=== PATIENT | female | born 1945 | race Caucasian/White ===

== ENCOUNTER 2019-06-11 11:50 | Outpatient (CLI) | payer MEDICARE, SELFPAY ==
--- NOTE | ~2019-06-11 | DEXA_ITS ---
BMD(1) Young-Adult(2) Age-Matched(3) Region (g/cm2) T-score Z-score WHO Classification L1 1.033 -0.9 0.5 Normal L2 1.108 -0.8 0.5 Normal L3 1.360 1.1 2.5 Normal L4 1.217 0.0 1.4 Normal L1-L4 1.179 -0.1 1.3 Normal Trend: L1-L4 Change vs Change vs Measured Age BMD(1) Baseline Previous Date [age]) (g/cm2) (%) (%) 06/11/2019 [age] 1.179 10.5* 10.5* 12[age]24/2015 [age] 1[age]067 baseline - * - Indicates significant change based on 95% confidence interval. 1 - Statistically 68% of repeat scans fall within 1SD (+- 0.010 g/cm2 for AP Spine L1-L4) 2 - [place] (Combined NHANES (ages 20-30) / enosiX (ages 20-40)) AP Spine Reference Population (v112) 3 - Matched for Age, Weight (females 25-100 kg), Ethnic 11 - World Health Organization - Definition of Osteoporosis and Osteopenia for Women: Norm al = T-score at or above -1.0 SD; Osteopenia = T-score between -1.0 and -2.5 SD; Osteoporosis = T-sco re at or below -2.5 SD; (WHO definitions only apply when a young healthy Women reference da tabase is used to determine T-scores.) Printed: 06/11/2019 12:36:26 PM (13.60)76:3.00:50.00:12.0 0.00:12.78 0.60x1.05 25.8:%Fat=44.2% 0.00:0.00 0.00:0.00 Filename: [id number] Scan Mode: Standard;OneScan 37.0 MyLuvs [id number] BMD(1) Young-Adult(2,7) Age-Matched(3) Region (g/cm2) T-score Z-score WHO Classification Neck Left 0.913 -0.9 0.7 Normal Right 0.850 -1.3 0.3 Osteopenia Mean 0.882 -1.1 0.5 Osteopenia Difference 0.062 -0.4 -0.4 - Total Left 0.977 -0.2 1.1 Normal Right 0.905 -0.8 0.6 Normal Mean 0.941 -0.5 0.9 Normal Difference 0.072 -0.6 -0.6 - Hip [place] Length Comparison (mm) (Right = 94.3 mm) (Mean = 99.0 mm) (Left = 96.5 mm) Trend: Total Mean Change vs Change vs Measured Age BMD(1) Baseline Previous Date [age]years) (g/cm2) (%) (%) 06/11/2019 [age] 0.941 baseline - 1 - Statistically 68% of repeat scans fall within 1SD (+- 0.010 g/cm2 for DualFemur Total) 2 - [place] (Combined NHANES (ages 20-30) / enosiX (ages 20-40)) Femur Reference Population (v112) 3 - Matched for Age, Weight (females 25-100 kg), Ethnic 7 - DualFemur Total T-score difference is 0.6. Asymmetry is Mild. 11 - World Health Organization - Definition of Osteoporosis and Osteopenia for Women: Norm al = T-score at or above -1.0 SD; Osteopenia = T-score between -1.0 and -2.5 SD; Osteoporosis = T-sco re at or below -2.5 SD; (WHO definitions only apply when a young healthy Women reference da tabase is used to determine T-scores.) Printed: 06/11/2019 12:36:27 PM (13.60); Filename: [id number]; Right Femur; 22.7:%Fat=38.6%; Neck Angle (deg)= 61; Scan Mode: Standard 37.0 uGy; Left Femur; 22.2:%Fat=36.1%; Neck Angle (deg)= 70; Verify there is sufficient tissue above and below femoral neck.; Scan Mode: Standard 37.0 uGy howsimple [id number] Dear Jono Stoddard, Your patient Светлана Bailon completed a BMD test on 06/11/2019 using the howsimple DXA System (marixa lysis version: 13.60) manufactured by [employer]. The following summarizes the results of our chuck luation. PATIENT BIOGRAPHICAL: Name: Светлана Bailon Date: 1945 Height: 58.0 in.
[2019-06-11 12:43] LABS: Hemoglobin A1C 6.2 % (<5.7)
[2019-06-11 12:59] LABS: Thyroid Stimulating Hormone Reflex 5.41 u/IU/mL (0.36-3.74)
[2019-06-11 13:31] LABS: Free T4 Free Thyroxine Reflex 0.81 ng/dL (0.76-1.46)
[2019-06-14 13:22] LABS: Parathyroid Intact 129 pg/mL (14-64)
[2019-06-15 09:43] LABS: Vitamin D 1,25 (OH)2 Total 48 pg/mL (18-72); Vitamin D2 1,25 (OH)2 <8 pg/mL; Vitamin D3 1,25 (OH)2 48 pg/mL
== END 2019-06-11 11:51 | disposition home or self-care (01) ==
PROVIDERS: PCP Family Medicine; Visit Provider Family Medicine
DX: M81.0 Age-related osteoporosis without current pathological fracture (principal); E03.9 Hypothyroidism, unspecified; E66.3 Overweight; Z79.899 Other long term (current) drug therapy
CPT/HCPCS: 36415; 77080; 82652; 83036; 83970; 84439; 84443

== ENCOUNTER 2019-06-20 08:36 | Outpatient (CLI) | payer MEDICARE, SELFPAY ==
[2019-06-20 09:33] LABS: Alanine Aminotransferase 26 U/L (14-59); Albumin Level 4.2 g/dL (3.4-5.0); Alkaline Phosphatase 79 U/L (46-116); Anion Gap 16.4 mmol/L (7-16); Aspartate Amino Transferase 16 U/L (15-37); Bilirubin,Total 0.4 mg/dL (0.00-1.00); Blood Urea Nitrogen 21 mg/dL (7-18); Carbon Dioxide 26 mmol/L (21-32); Chloride 104 mmol/L (98-108); Estimated Glomerular Filt Rate 53; Glucose 98 mg/dL (70-99); Magnesium 2.1 mg/dL (1.8-2.4); Osmolality Calculated 297 mOsm/kg (285-295); Potassium 4.4 mmol/L (3.5-5.1); Sodium 142 mmol/L (136-145); Total Protein 8.2 g/dL (6.4-8.2)
[2019-06-23 04:34] LABS: Ionized Calcium 5.2 mg/dL (4.8-5.6)
== END 2019-06-20 08:37 | disposition home or self-care (01) ==
LOC: CHSLAB 08:40
PROVIDERS: PCP Family Medicine; Visit Provider Family Medicine
DX: R79.89 Other specified abnormal findings of blood chemistry (principal)
CPT/HCPCS: 36415; 80053; 82330; 83735; 84100

== ENCOUNTER 2019-11-25 08:50 | Outpatient (CLI) | payer MEDICARE, SELFPAY ==
[2019-11-25 10:00] LABS: Thyroid Stimulating Hormone Reflex 4.75 u/IU/mL (0.36-3.74)
[2019-11-25 10:05] LABS: Free T4 Free Thyroxine Reflex 0.92 ng/dL (0.76-1.46)
== END 2019-11-25 08:51 | disposition home or self-care (01) ==
PROVIDERS: PCP Family Medicine; Visit Provider Family Medicine
DX: E78.5 Hyperlipidemia, unspecified (principal)
CPT/HCPCS: 36415; 84439; 84443

== ENCOUNTER 2020-02-06 10:55 | Outpatient (CLI) | payer MEDICARE, OTHER, SELFPAY ==
--- NOTE | ~2020-02-06 | XR_ITS ---
EXAMINATION: XR foot LT min 3V EXAM DATE: 02/06/2020 11:14 INDICATION: No known recent injury provided at this time. Pain of the left foot, 2nd toe swelling. TECHNIQUE: Left foot dorsoplantar, lateral and oblique projections obtained and reviewed. There is n o prior study for comparison. FINDINGS: There is moderate Lisfranc, 1st metatarsophalangeal, 2nd and 3rd proximal interphalangeal p rimary osteoarthritis. Less arthritis at other left interphalangeal, midfoot joints. There are no bon y erosions identified. There are no acute fractures or dislocations identified. There is no subcutan eous gas. The soft tissue is unremarkable. There are no radiopaque foreign bodies. IMPRESSION: Moderate left foot polyarticular osteoarthritis. Reviewed, dictated and finalized at location B.
== END 2020-02-06 10:56 | disposition home or self-care (01) ==
LOC: CHSLAB 10:57
PROVIDERS: PCP Family Medicine; Visit Provider Family Medicine
DX: M79.675 Pain in left toe(s) (principal); M79.89 Other specified soft tissue disorders
CPT/HCPCS: 73630

== ENCOUNTER 2020-06-01 09:29 | Outpatient (CLI) | payer MEDICARE, SELFPAY ==
[2020-06-01 10:33] LABS: Thyroid Stimulating Hormone 2.83 uIU/mL (0.36-3.74)
== END 2020-06-01 09:30 | disposition home or self-care (01) ==
LOC: CHSLAB 09:31
PROVIDERS: PCP Family Medicine; Visit Provider Family Medicine
DX: E78.5 Hyperlipidemia, unspecified (principal)
CPT/HCPCS: 36415; 84443

== ENCOUNTER 2020-12-04 08:18 | Outpatient (CLI) | payer MEDICARE, SELFPAY ==
[2020-12-04 08:40] LABS: Hematocrit 38.2 % (35.0-42.0); Hemoglobin 12.4 g/dL (11.7-13.8); Mean Corpuscular HGB Conc 32.5 g/dL (32.0-36.0); Mean Corpuscular Volume 86.2 fL (78.0-102.0); Mean Platelet Volume 8.1 fl (9.2-11.8); Platelet Count Result 157 K/mm3 (150-420); Red Blood Count 4.43 M/mm3 (4.20-5.40); Red Cell Distribution Width 13.4 % (11.6-14.4); White Blood Count 7.7 K/mm3 (4.8-10.8)
[2020-12-04 09:43] LABS: Alanine Aminotransferase 22 U/L (14-59); Albumin Level 3.9 g/dL (3.4-5.0); Alkaline Phosphatase 95 U/L (46-116); Anion Gap 12 mmol/L (8-16); Aspartate Amino Transferase 13 U/L (15-37); Bilirubin,Total 0.5 mg/dL (0.00-1.00); Blood Urea Nitrogen 18 mg/dL (7-18); Calcium 8.5 mg/dL (8.5-10.1); Carbon Dioxide 25 mmol/L (21-32); Chloride 107 mmol/L (98-108); Cholesterol 171 mg/dL (0-200); Estimated Glomerular Filt Rate > 60; Glucose 96 mg/dL (70-99); HDL Direct 82 mg/dL (40-60); LDL Cholesterol Calculated 71 mg/dL (<130); Osmolality Calculated 299 mOsm/kg (285-295); Potassium 4.4 mmol/L (3.5-5.1); Sodium 144 mmol/L (136-145); Total Protein 7.6 g/dL (6.4-8.2); Triglycerides 92 mg/dL (0-150)
[2020-12-04 09:47] LABS: Free T4 Free Thyroxine Reflex 0.87 ng/dL (0.76-1.46); Thyroid Stimulating Hormone Reflex 5.16 u/IU/mL (0.36-3.74)
== END 2020-12-04 08:19 | disposition home or self-care (01) ==
LOC: CHSLAB 08:21
PROVIDERS: PCP Family Medicine; Visit Provider Family Medicine
DX: E03.9 Hypothyroidism, unspecified (principal); E11.9 Type 2 diabetes mellitus without complications; E78.5 Hyperlipidemia, unspecified
CPT/HCPCS: 36415; 80053; 80061; 84439; 84443; 85027

== ENCOUNTER 2021-06-07 09:30 | Outpatient (CLI) | payer MEDICARE, SELFPAY ==
[2021-06-07 11:03] LABS: Thyroid Stimulating Hormone 2.82 uIU/mL (0.36-3.74)
== END 2021-06-07 09:31 | disposition home or self-care (01) ==
LOC: CHSLAB 09:32
PROVIDERS: PCP Family Medicine; Visit Provider Nurse Practitioner Family
DX: E03.9 Hypothyroidism, unspecified (principal)
CPT/HCPCS: 36415; 84443

== ENCOUNTER 2021-12-08 09:20 | Outpatient (CLI) | payer MEDICARE, OTHER, SELFPAY ==
--- NOTE | ~2021-12-08 | XR_ITS ---
EXAMINATION: XR knee LT 3V DATE: 12/08/2021 09:44 INDICATION: Left knee pain TECHNIQUE: Four views of the left knee were obtained. COMPARISON: 04/27/2010 FINDINGS: Alignment is normal. No fracture or osteochondral lesion. 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 There is moderate joint space narrowing in the medial and pat ellofemoral compartments. There is mild narrowing of the lateral compartment. No joint effusion/synov itis. Soft tissues are unremarkable. IMPRESSION: 1. 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 Reviewed, dictated and finalized at location B. IMPRESSION: 1. Tricompartmental osteoarthritis, worst in the medial and patellofemoral comp artments.
== END 2021-12-08 09:21 | disposition home or self-care (01) ==
LOC: CHSLAB 09:22
PROVIDERS: PCP Family Medicine; Visit Provider Family Medicine
DX: M25.562 Pain in left knee (principal); M17.12 Unilateral primary osteoarthritis, left knee
CPT/HCPCS: 73562

== ENCOUNTER 2022-06-10 08:28 | Outpatient (CLI) | payer MEDICARE, SELFPAY ==
[2022-06-10 08:39] LABS: Hematocrit 38.9 % (35.0-42.0); Hemoglobin 12.6 g/dL (11.7-13.8); Mean Corpuscular HGB Conc 32.4 g/dL (32.0-36.0); Mean Corpuscular Hemoglobin 28.4 pg (27.0-31.0); Mean Corpuscular Volume 87.6 fL (78.0-102.0); Mean Platelet Volume 7.9 fl (9.2-11.8); Platelet Count Result 154 K/mm3 (150-420); Red Blood Count 4.44 M/mm3 (4.20-5.40); Red Cell Distribution Width 13.2 % (11.6-14.4); White Blood Count 6.6 K/mm3 (4.8-10.8)
[2022-06-10 09:29] LABS: Alanine Aminotransferase 35 U/L (14-59); Albumin Level 3.9 g/dL (3.4-5.0); Alkaline Phosphatase 97 U/L (46-116); Anion Gap 8 mmol/L (8-16); Aspartate Amino Transferase 33 U/L (15-37); Bilirubin,Total 0.5 mg/dL (0.00-1.00); Blood Urea Nitrogen 23 mg/dL (7-18); Calcium 8.8 mg/dL (8.5-10.1); Carbon Dioxide 29 mmol/L (21-32); Chloride 105 mmol/L (98-108); Cholesterol 177 mg/dL (0-200); Estimated Glomerular Filt Rate 47; Glucose 98 mg/dL (70-99); HDL Direct 75 mg/dL (40-60); LDL Cholesterol Calculated 84 mg/dL (<130); Osmolality Calculated 297 mOsm/kg (285-295); Potassium 4.6 mmol/L (3.5-5.1); Sodium 142 mmol/L (136-145); Triglycerides 92 mg/dL (0-150)
[2022-06-10 09:30] LABS: Thyroid Stimulating Hormone Reflex 2.56 u/IU/mL (0.36-3.74)
== END 2022-06-10 08:29 | disposition home or self-care (01) ==
LOC: CHSLAB 08:30
PROVIDERS: PCP Family Medicine; Visit Provider Family Medicine
DX: E78.5 Hyperlipidemia, unspecified (principal); E03.9 Hypothyroidism, unspecified; E11.9 Type 2 diabetes mellitus without complications; K21.9 Gastro-esophageal reflux disease without esophagitis
CPT/HCPCS: 36415; 80053; 80061; 84443; 85027

== ENCOUNTER 2022-07-22 13:37 | Outpatient (CLI) | payer MEDICARE, OTHER, SELFPAY ==
--- NOTE | ~2022-07-22 | DEXA_ITS ---
Bone Density Report Name: MARITO PADILLA Age: 77 Sex: Female Ethnicity: White Date of : 1945 Indication: postmenopausal; screening for osteoporosis; height loss; Referring Provider: Jono Stoddard Study: Bone densitometry was performed. Exam Date: July 22, 2022 Accession number: [id number] Bone Density: Region BMD T-score Z-score Classification AP Spine(L1-L4) 1.078 0.3 2.8 Normal Femoral Neck (Left) 0.733 -1.0 1.1 Normal Total Hip (Left) 0.883 -0.5 1.4 Normal Femoral Neck (Right) 0.716 -1.2 1.0 Osteopenia Total Hip (Right) 0.830 -0.9 0.9 Normal Femoral Neck Mean 0.725 -1.1 1.0 Osteopenia Total Hip Mean 0.857 -0.7 1.2 Normal World Health Organization criteria for BMD impression classify patients as: Normal (T-score at or above -1.0), Osteopenia (T-score between -1.0 and -2.5), or Osteoporosis (T-score at or below -2.5). 10-year Fracture Risk(1): Major Osteoporotic Fracture 11% Hip Fracture 1.9% Reported Risk Factors: [place] (), Neck BMD=0.716, BMI=31.3 (1) FRAX(R) Version 3.08. Fracture probability calculated for an untreated patient. Fracture probability may be lower if the patient has received treatment. Clinical Information Provided by Patient: Patient maximum height was 61 No regular weight bearing exercise Drinks caffeinated beverages Onset of menses at age 14 Number of children 0 Impression: The patient has low bone mass, based on the Right Femoral Neck T-score. Discussion: BONE DENSITY IS LOW AT ONE OR MORE SKELETAL SITES. This patient's lowest T-score is low at one or more skeletal sites. It meets the World Health Organization's (WHO) criteria for ?low bone mass? (T-score between -1.0 and -2.5). The patient's 10-year risk of fracture as calculated by FRAX is less than the threshold where pharmacological therapy is recommended by the National Osteoporosis Foundation (NOF). However, all treatment decisions require clinical judgment and consideration of individual patient factors, including patient preferences, comorbidities, previous drug use, risk factors not captured in the FRAX model (e.g., frailty, falls, vitamin D deficiency, increased bone turnover, interval significant decline in bone density) and possible under or overestimation of fracture risk by FRAX. The patient should follow a healthful lifestyle (good nutrition with adequate calcium and vitamin D, and appropriate weight-bearing exercise). Follow-Up: Consider repeating this study in 2 to 3 years to reassess this patient's status, or sooner if there is some new clinical indication. Reported by: Dr. Jamie Espinoza on 07/22/2022 2:13:00 PM. Reviewed, dictated and finalized at location [facility]
== END 2022-07-22 13:38 | disposition home or self-care (01) ==
LOC: CHSIMG 13:38
PROVIDERS: PCP Family Medicine; Visit Provider Family Medicine
DX: Z78.0 Asymptomatic menopausal state (principal); M85.89 Other specified disorders of bone density and structure, multiple sites
CPT/HCPCS: 77080

== ENCOUNTER 2023-05-26 08:39 | Outpatient (CLI) | payer MEDICARE, SELFPAY ==
[2023-05-26 08:54] LABS: Basophils Absolute Auto 0.08 K/mm3 (0.00-0.10); Eosinophils Absolute Auto 0.13 K/mm3 (0.02-0.50); Eosinophils Percent Auto 1.6 % (1.0-6.0); Immature Granulocyte Absolute 0.06 K/mm3 (0.00-0.00); Immature Granulocyte Percent A 0.7 % (0.0-0.0); Lymphocytes Absolute Auto 1.49 K/mm3 (1.10-4.50); Lymphocytes Percent Auto 17.8 % (18.0-42.0); Mean Corpuscular HGB Conc 32.5 g/dL (32.0-36.0); Mean Corpuscular Hemoglobin 28.8 pg (27.0-31.0); Mean Corpuscular Volume 88.5 fL (78.0-102.0); Mean Platelet Volume 7.8 fl (9.2-11.8); Monocytes Absolute Auto 0.46 K/mm3 (0.10-0.90); Monocytes Percent Auto 5.5 % (2.0-11.0); Neutrophils Absolute Auto 6.2 K/mm3 (1.7-7.2); Neutrophils Percent Auto 73.4 % (50.0-70.0); Platelet Count Result 170 K/mm3 (150-420); Red Blood Count 4.52 M/mm3 (4.20-5.40); Red Cell Distribution Width 13.1 % (11.6-14.4); White Blood Count 8.4 K/mm3 (4.8-10.8)
[2023-05-26 09:47] LABS: Alanine Aminotransferase 26 U/L (14-59); Albumin Level 3.8 g/dL (3.4-5.0); Alkaline Phosphatase 106 U/L (46-116); Anion Gap 11 mmol/L (8-16); Aspartate Amino Transferase 17 U/L (15-37); Bilirubin,Total 0.6 mg/dL (0.00-1.00); Blood Urea Nitrogen 18 mg/dL (7-18); Carbon Dioxide 27 mmol/L (21-32); Chloride 104 mmol/L (98-108); Cholesterol 193 mg/dL (0-200); Estimated Glomerular Filt Rate 49; Glucose 103 mg/dL (70-99); HDL Direct 95 mg/dL (40-60); LDL Cholesterol Calculated 81 mg/dL (<130); Osmolality Calculated 295 mOsm/kg (285-295); Potassium 4.2 mmol/L (3.5-5.1); Sodium 142 mmol/L (136-145); Total Protein 7.9 g/dL (6.4-8.2); Triglycerides 86 mg/dL (0-150)
[2023-05-26 10:07] LABS: Thyroid Stimulating Hormone Reflex 4.65 u/IU/mL (0.36-3.74)
== END 2023-05-26 08:40 | disposition home or self-care (01) ==
LOC: CHSLAB 08:41
PROVIDERS: PCP Family Medicine; Visit Provider Family Medicine
DX: E11.9 Type 2 diabetes mellitus without complications (principal); E03.9 Hypothyroidism, unspecified; E78.5 Hyperlipidemia, unspecified
CPT/HCPCS: 36415; 80053; 80061; 84439; 84443; 85025

== ENCOUNTER 2024-05-28 09:01 | Outpatient (CLI) | payer MEDICARE, SELFPAY ==
[2024-05-28 09:17] LABS: Basophils Absolute Auto 0.06 K/mm3 (0.00-0.10); Basophils Percent Auto 0.7 % (0.0-1.0); Eosinophils Absolute Auto 0.15 K/mm3 (0.02-0.50); Eosinophils Percent Auto 1.8 % (1.0-6.0); Hematocrit 38.6 % (35.0-42.0); Hemoglobin 12.5 g/dL (11.7-13.8); Immature Granulocyte Absolute 0.03 K/mm3 (0.00-0.00); Immature Granulocyte Percent A 0.4 % (0.0-0.0); Lymphocytes Percent Auto 15.8 % (18.0-42.0); Mean Corpuscular HGB Conc 32.4 g/dL (32-36); Mean Corpuscular Hemoglobin 28.3 pg (27.0-31.0); Mean Corpuscular Volume 87.3 fL (78.0-102.0); Mean Platelet Volume 8.2 fl (9.2-11.8); Monocytes Absolute Auto 0.58 K/mm3 (0.10-0.90); Neutrophils Absolute Auto 6.11 K/mm3 (1.70-7.20); Neutrophils Percent Auto 74.3 % (50.0-70.0); Platelet Count Result 157 K/mm3 (150-420); Red Blood Count 4.42 M/mm3 (4.20-5.40); Red Cell Distribution Width 12.8 % (11.6-14.4); White Blood Count 8.2 K/mm3 (4.8-10.8)
[2024-05-28 10:22] LABS: Alanine Aminotransferase 22 U/L (14-59); Alkaline Phosphatase 108 U/L (46-116); Anion Gap 9 mmol/L (4-12); Aspartate Amino Transferase 16 U/L (15-37); Bilirubin,Total 0.7 mg/dL (0.00-1.00); Blood Urea Nitrogen 20 mg/dL (7-18); Carbon Dioxide 29 mmol/L (21-32); Chloride 104 mmol/L (98-108); Cholesterol 175 mg/dL (0-200); Estimated Glomerular Filt Rate 44; Glucose 100 mg/dL (70-99); HDL Direct 80 mg/dL (40-60); LDL Cholesterol Calculated 77 mg/dL (<130); Osmolality Calculated 296 mOsm/kg (285-295); Potassium 4.2 mmol/L (3.5-5.1); Sodium 142 mmol/L (136-145); Total Protein 7.7 g/dL (6.4-8.2); Triglycerides 88 mg/dL (0-150)
[2024-05-28 10:29] LABS: Thyroid Stimulating Hormone Reflex 0.92 u/IU/mL (0.36-3.74)
== END 2024-05-28 09:02 | disposition home or self-care (01) ==
PROVIDERS: PCP Family Medicine; Visit Provider Family Medicine
DX: K21.9 Gastro-esophageal reflux disease without esophagitis (principal); E03.9 Hypothyroidism, unspecified; E78.5 Hyperlipidemia, unspecified
CPT/HCPCS: 36415; 80053; 80061; 84443; 85025